=== PATIENT | female | born 1980 | race Caucasian/White ===

== ENCOUNTER 2020-01-07 10:45 | Outpatient (CLI) | payer OTHER ==
[2020-01-08 11:42] LABS: SARS-CoV-2 MS2 Positive; SARS-CoV-2 N Gene Negative; SARS-CoV-2 S Gene Negative; SARS-CoV-2 by NAA Not Detected (NotDetected); SARS-CoV-2 orf1ab Negative
== END 2020-01-07 10:46 | disposition home or self-care (01) ==
LOC: LABBT 10:45
PROVIDERS: ATTEND Orthopaedic Surgery
DX: Z01.812 Encounter for preprocedural laboratory examination (principal); Z11.59 Encounter for screening for other viral diseases; S82.851A Displaced trimalleolar fracture of right lower leg, initial encounter for closed fracture
CPT/HCPCS: 87635; U0003

== ENCOUNTER 2020-01-08 20:01 | Observation (INO) | payer SELFPAY ==
[2020-01-08] MEDS ORDERED: Morphine 4 MG/ML VIAL ONE (20:55)
[2020-01-08 21:08] LABS: #Eosinphils 0.1 thou/uL (0.0-0.7); #Lymphocytes 1.7 thou/uL (1.20-3.40); #Monocytes 0.5 thou/uL (0.11-0.59); #Neutrophils 4.2 thou/uL (1.40-6.50); %Basophils 0.3 % (0.0-1.0); %Eosinophils 1.5 % (0.0-10.0); %Lymphocytes 26.8 % (21.0-51.0); %Monocytes 7.5 % (0.0-10.0); Mean Corpuscular Hemoglobin 28.8 pg (27.0-31.0); Mean Corpuscular Volume 87.3 fL (78.0-98.0); Mean Platelet Volume 6.1 fL (7.4-10.4); Platelet Count 392 thou/uL (130-400); RBC Distribution Width 12.3 % (11.5-14.5); Red Blood Cell (RBC) Count 4.17 mill/uL (4.20-5.40); White Blood Cell (WBC) Count 6.5 thou/uL (4.8-10.8)
[2020-01-08 21:27] LABS: ALT (SGPT) 14 U/L (8-55); AST (SGOT) 19 U/L (5-34); Albumin 3.8 g/dL (3.5-5.0); Alkaline Phosphatase 50 U/L (40-110); Anion Gap 11 mmol/L (10-20); BUN (Urea Nitrogen) 11 mg/dL (7.0-18.7); Bilirubin, Total 0.3 mg/dL (0.2-1.2); Calc. Creatinine Clearance 0 mL/min (70-130); Calcium 8.9 mg/dL (7.8-10.44); Carbon Dioxide 27 mmol/L (22-29); Chloride 102 mmol/L (98-107); Estimated GFR-MDRD 60; Globulin 2.9 g/dL (2.4-3.5); Glucose 89 mg/dL (70-105); Potassium 3.9 mmol/L (3.5-5.1); Protein, Total 6.7 g/dL (6.0-8.3); Sodium 136 mmol/L (136-145)
--- NOTE | 2020-01-08 21:47 | RAD ---
Exam:Right ankle 3 views HISTORY: Known fracture. Pain. COMPARISON: None FINDINGS: Limited evaluation of fine bony detail due to external lasting material. Mildly displaced d istal fibular fracture with cortication. Posterior malleolus fracture and medial malleolus fracture identified. There is widening of the distal aspect of the syndesmosis. There is widening of the later al joint space.. IMPRESSION: Posttraumatic changes as described above. Comparison with prior imaging beneficial. Given widening of the medial joint space and widening of the distal syndesmosis, consider orthopedic consultation
--- NOTE | 2020-01-08 22:18 | ULT ---
Exam:Rightlower extremity venous ultrasound with Doppler HISTORY: Rightlower extremity swelling. Pain. Fracture. COMPARISON: None TECHNIQUE: Grayscale, color flow, Doppler imaging and spectral wave muscle performed right lower extr emity venous system FINDINGS: There is compressibility, presence of flow and augmentation in the common femoral vein, femoral vein and popliteal vein. There is flow in the greater saphenous vein and profunda femoral vein. Posterior tibial vein cannot be assessed due to bandage material. IMPRESSION: No thrombus in the visualized right lower extremity deep venous system.
[2020-01-09 00:07] VITALS: BMI 41.3
[2020-01-09] MEDS ORDERED: Acetaminophen 325 MG TAB PO PRN ×2 (00:07→11:10)
[2020-01-09] MEDS ORDERED: ALPRAZolam 0.25 MG TAB PO PRN (00:46)
[2020-01-09] MEDS ORDERED: hydrOXYzine 25 MG TAB PO SCH ×2 (01:00→09:00)
[2020-01-09] MEDS ORDERED: lamoTRIgine 100 MG TAB PO SCH ×3 (01:00→21:00)
[2020-01-09] MEDS ORDERED: Bupropion 150 MG XL TAB PO SCH ×2 (01:00→21:00)
[2020-01-09] MEDS: Sodium Chloride 0.9% 1,000 ML IV SCH ×2 (01:08→10:25)
[2020-01-09] MEDS ORDERED: Lithium Carbonate 150 MG CAP PO SCH (01:15)
[2020-01-09] MEDS: Morphine 4 MG/ML VIAL SLOW IVP PRN ×3 (01:27→10:25)
[2020-01-09] MEDS: HYDROcodone/Acetaminophen 5/325 mg Tablet PO PRN ×2 (04:15→12:17)
[2020-01-09] MEDS: Lithium Carbonate 150 MG CAP PO SCH ×2 (07:46→18:42)
[2020-01-09] MEDS ORDERED: CEFAZOLIN 2 GM in Premix Bag 1 BAG IVPB SCH (08:45)
[2020-01-09] MEDS ORDERED: Ascorbic Acid 500 mg Chewable Tablet PO SCH (09:00)
[2020-01-09] MEDS ORDERED: Ropivacaine 0.5% HCl/PF (150 MG/30 ML VIAL) ONE ×2 (09:40→13:37)
[2020-01-09] MEDS ORDERED: Bupivacaine HCl 0.5%/Epinephrine 1:200,000/PF 30 ml Vial ONE (09:40)
[2020-01-09] MEDS ORDERED: Dexamethasone 20 MG/5 ML VIAL ONE (09:40)
[2020-01-09] MEDS ORDERED: PROPOFOL 200 MG/20 ML VIAL ONE (09:40)
[2020-01-09] MEDS ORDERED: diphenhydrAMINE 50 MG/ML VIAL ONE (09:40)
[2020-01-09] MEDS ORDERED: Ondansetron PF 4 MG/2 ML Vial ONE (09:40)
[2020-01-09] MEDS ORDERED: Ropivacaine 0.2% HCl/PF (40 MG/20 ML VIAL) ONE (09:40)
[2020-01-09] MEDS ORDERED: Lidocaine 1% PF 5 ML VIAL ONE (09:40)
[2020-01-09] MEDS ORDERED: Morphine 4 MG/ML VIAL SLOW IVP PRN (11:10)
[2020-01-09] MEDS ORDERED: Sodium Chloride 0.9% 1,000 ML IV SCH (11:15)
[2020-01-09] MEDS: ALPRAZolam 0.25 MG TAB PO PRN ×2 (12:17→18:55)
[2020-01-09] MEDS ORDERED: Midazolam HCl 2 mg/2 ml Vial ONE (13:36)
[2020-01-09] MEDS ORDERED: Fentanyl 100 MCG/2 ML VIAL ONE ×3 (13:36→17:28)
[2020-01-09] MEDS ORDERED: Ropivacaine 0.2% HCl/PF 20 ML ONE (13:37)
[2020-01-09] MEDS ORDERED: Bupivacaine PF 0.5% 30 ML VIAL ONE (13:37)
[2020-01-09] MEDS ORDERED: Neomycin-Polymyxin 1 ML AMP ONE (14:44)
[2020-01-09] MEDS ORDERED: traMADol HCl 50 MG TAB PO PRN ×2 (15:14)
[2020-01-09] MEDS ORDERED: Ondansetron PF 4 MG/2 ML Vial IVP PRN (15:14)
[2020-01-09] MEDS ORDERED: Ropivacaine 0.2% 550 ML 550 ML NERVE BLCK SCH (15:14)
[2020-01-09] MEDS ORDERED: Zolpidem Tartrate 5 MG TAB PO PRN (15:14)
[2020-01-09] MEDS ORDERED: HYDROcodone/Acetaminophen 10/325 mg Tablet PO PRN ×2 (15:14)
[2020-01-09] MEDS ORDERED: Promethazine HCl 25 MG/ML VIAL IM PRN ×2 (15:14→16:21)
[2020-01-09] MEDS ORDERED: Fentanyl 100 MCG/2 ML VIAL IV PRN (15:15)
[2020-01-09] MEDS ORDERED: Promethazine HCl 25 MG/ML VIAL SLOW IVP PRN (16:21)
[2020-01-09] MEDS ORDERED: Meperidine HCl/PF 25 MG/ML VIAL SLOW IVP PRN (16:21)
[2020-01-09] MEDS ORDERED: HYDROmorphone 2 MG/ML VIAL SLOW IVP PRN (16:21)
[2020-01-09] MEDS ORDERED: Ketorolac Tromethamine 30 MG/ML VIAL IVP PRN (16:21)
--- NOTE | 2020-01-09 16:31 | RAD ---
Right ankle 3 views intraoperative fluoroscopy HISTORY: Fracture. FINDINGS: Intraoperative fluoroscopy was provided for internal fixation as performed by Dr. Goff. Spot fluoroscopic views show lateral compression plate transfixing the distal fibula. Long lag screws transfix the medial malleolus. Transverse screw fixes the distal tibiofibular joint. Alignment is anatomic. Fluoroscopy time 11.7 minutes.
[2020-01-09] MEDS ORDERED: Ketorolac Tromethamine 30 MG/ML VIAL ONE (18:00)
[2020-01-09 18:42] VITALS: BP 133/90; TEMP 97.3
--- NOTE | 2020-01-10 10:46 | OP ---
DATE OF PROCEDURE: 01/09/2020 PREOPERATIVE DIAGNOSIS: Right trimalleolar ankle fracture with disruption of syndesmosis. POSTOPERATIVE DIAGNOSIS: Right trimalleolar ankle fracture with disruption of syndesmosis. PROCEDURES PERFORMED: 1. Open reduction and internal fixation of right trimalleolar ankle. 2. Right syndesmotic disruption repair. ANESTHESIA: General. TEAM FACILITATOR: Dillon. TOURNIQUET TIME: 60 minutes at 300 mmHg. IMPLANTS: Synthes system was used with a 1/3 tubular 8-hole plate with the addition of a 4 mm cortical syndesmotic screw. COMPLICATIONS: None. DRAINS: None. SPECIMEN: None. OUTCOME: Satisfactory. INDICATIONS FOR PROCEDURE: The patient is a 39-year-old lady status post twisting injury sustaining a fracture dislocation of the right ankle. This was provisionally reduced in an outside emergency room and splinted. The patient now is scheduled to proceed for surgical stabilization for this grossly unstable ankle with disruption of the syndesmosis. Informed consent has been obtained. I believe all questions have been answered. DESCRIPTION OF PROCEDURE: The patient was brought to the operating room and a time-out performed followed by induction of general anesthesia. Next, a sterile prep and drape was performed to the right lower extremity. The limb was exsanguinated with Esmarch bandage and tourniquet inflated to 300 mmHg. Next, a longitudinal incision was made over the distal fibula. After skin was sharply incised, dissection was carried down bluntly exposing the lateral malleolus and distal fibula using minimal subperiosteal dissection, the fracture edges were identified. The fracture hematoma was lavaged from the wound and then the fracture reduced and held in place with a provisional K-wire. Next, an 8-hole 1/3 tubular plate was bent and applied to the lateral cortex of the fibular shaft and distal fibula. This was held in place with a total of three cortical screws proximal and distal to the fracture. There was a more medial butterfly fragment that was laying in apposition to the shaft and this was rather thin and as such, inner fragmentary capturing of this was not pursued. The fibula was brought out to length and then images of the ankle showed christianity of the mortise, but still with a grossly unstable distal tib-fib articulation. As such, attention was then placed on the medial ankle, a longitudinal incision was made over the medial malleolus. After the skin was sharply incised, dissection was carried down bluntly. Branches of the vein were electrocauterized to allow for mobilization of the vein. The fracture edges were freed of soft tissue and the fracture hematoma lavaged from the wound. The fracture was then reduced and held in place with bone tenaculum and then two partially-threaded cancellous screws were passed from the tip of the medial malleolus obliquely across the fracture into the distal tibial metaphysis. This resulted in anatomic alignment of the ankle mortise. Next, going back to the lateral incision, a drill was passed from both cortices of the fibula across both cortices of the distal tibia. This under C-arm guidance. A 4.0 mm cortical screw was then passed as a syndesmotic screw stabilizing the ankle mortise. At the completion of this, final AP, lateral and mortise C-arm images were obtained. The two incisions were thoroughly irrigated with bulb syringe and normal saline followed by closure with 0 Vicryl deep followed by 2-0 Vicryl and then the final skin closure. Xeroform gauze, Webril, and a fiberglass splint were applied to the ankle. Tourniquet was let down at the completion of dressing and the patient was transferred to recovery room in stable condition. There were no complications. She tolerated the procedure well. Job ID: [id number]
== END 2020-01-09 20:05 | disposition home or self-care (01) ==
LOC: ERS 20:01 → SURG A 23:30
PROVIDERS: ADMIT Orthopaedic Surgery; ATTEND Orthopaedic Surgery
PROC: 0QSJ04Z Reposition Right Fibula with Internal Fixation Device, Open Approach (ICD-10-PCS; principal; 2020-01-09)
PROC: 0QSG04Z Reposition Right Tibia with Internal Fixation Device, Open Approach (ICD-10-PCS; 2020-01-09)
PROC: 0QSG04Z Reposition Right Tibia with Internal Fixation Device, Open Approach (ICD-10-PCS; 2020-01-09)
DX: S82.851A Displaced trimalleolar fracture of right lower leg, initial encounter for closed fracture (principal); S93.431A Sprain of tibiofibular ligament of right ankle, initial encounter; F41.9 Anxiety disorder, unspecified; F31.9 Bipolar disorder, unspecified; F98.8 Other specified behavioral and emotional disorders with onset usually occurring in childhood and adolescence; Z79.899 Other long term (current) drug therapy; X58.XXXA Exposure to other specified factors, initial encounter; Y92.828 Other wilderness area as the place of occurrence of the external cause; Z88.5 Allergy status to narcotic agent
CPT/HCPCS: 29515; 36415; 76000; 80053; 85025; 85379; 96372; 96374; 96376; A4306; C1713; G0378; J0670; J0690; J1100; J1200; J1885; J2250; J2270; J2405; J2704; J2795; J3010; S0020

== ENCOUNTER 2020-04-02 08:55 | Outpatient (CLI) | payer OTHER ==
[2020-04-03 11:00] LABS: SARS-CoV-2 MS2 Positive; SARS-CoV-2 N Gene Negative; SARS-CoV-2 S Gene Negative; SARS-CoV-2 by NAA Not Detected (NotDetected); SARS-CoV-2 orf1ab Negative
== END 2020-04-02 08:56 | disposition home or self-care (01) ==
LOC: LABBT 08:55
PROVIDERS: ATTEND Orthopaedic Surgery
DX: T85.848D Pain due to other internal prosthetic devices, implants and grafts, subsequent encounter (principal); Z20.828 Contact with and (suspected) exposure to other viral communicable diseases
CPT/HCPCS: 87635; U0003

== ENCOUNTER 2020-04-07 10:25 | Day surgery (SDC) | payer OTHER, SELFPAY ==
[2020-04-06 13:21] VITALS: BMI 35.4
[2020-04-07] MEDS ORDERED: Ondansetron PF 4 MG/2 ML Vial ONE (12:19)
[2020-04-07] MEDS ORDERED: Lidocaine 1% PF 5 ML VIAL ONE (12:19)
[2020-04-07] MEDS ORDERED: PROPOFOL 200 MG/20 ML VIAL ONE (12:19)
[2020-04-07] MEDS ORDERED: Lidocaine 1% (PF) 30 ML VIAL ONE (13:02)
[2020-04-07] MEDS ORDERED: HYDROmorphone 0.5 MG/0.5 ML SYRINGE ONE (13:05)
[2020-04-07] MEDS ORDERED: Midazolam HCl 2 mg/2 ml Vial ONE (13:20)
[2020-04-07] MEDS ORDERED: Fentanyl 100 MCG/2 ML VIAL ONE (13:20)
[2020-04-07] MEDS ORDERED: HYDROcodone/Acetaminophen 5/325 mg Tablet ONE (14:25)
--- NOTE | 2020-04-07 17:07 | RAD ---
RIGHT ANKLE THREE VIEWS: 04/07/20 HISTORY: Hardware removal. These are C-arm films. They show single screw through the medial malleolus and a distal plate and scr ew stabilizing the distal fibular shaft fracture. The medial malleolus may actually have two screws w hich are overlapped. It is difficult to say as these are AP projections. The screw across the tibia a nd fibula has been removed. IMPRESSION: Intraoperative films showing hardware removal. POS: OFF
--- NOTE | 2020-04-07 19:25 | OP ---
DATE OF PROCEDURE: 04/07/2020 PROCEDURE PERFORMED: Right ankle hardware removal. PREOPERATIVE DIAGNOSIS: Right bimalleolar ankle fracture with syndesmosis screw fixation. POSTOPERATIVE DIAGNOSIS: Right bimalleolar ankle fracture with syndesmosis screw fixation. COMPLICATIONS: None. ESTIMATED BLOOD LOSS: Minimal. IMPLANTS: None. INDICATIONS: Ms. Cerna is a 39-year-old female, who has fallen and fractured her right ankle. She has displaced ankle fracture. She has been treated surgically and now is healed. She has been indicated for syndesmosis screw removal to prevent screw breakage and improve her motion. Risks have been reviewed. DESCRIPTION OF PROCEDURE: Ms. Cerna was identified in the preoperative holding area. Her correct extremity was marked. She was carried to the operating room. She was positioned supine. General anesthesia was induced. A multidisciplinary time-out was performed. The right lower extremity was prepped and draped in sterile fashion. We began the procedure with intraoperative evaluation of the ankle with x-ray. We identified the appropriate position for the syndesmosis screw. We made a small incision and dissected down to the screw head. At this point, we used a screwdriver to back out these screw. We then performed a stress view x-ray, which was negative. We then thoroughly irrigated and closed with a nylon suture. A sterile dressing was applied. The patient was taken to the recovery room in good condition. Job ID: [id number]
== END 2020-04-07 15:10 | disposition home or self-care (01) ==
LOC: SDC 10:25
PROVIDERS: ATTEND Orthopaedic Surgery
PROC: 0YP90YZ Removal of Other Device from Right Lower Extremity, Open Approach (ICD-10-PCS; principal; 2020-04-07)
DX: T84.84XA Pain due to internal orthopedic prosthetic devices, implants and grafts, initial encounter (principal)
CPT/HCPCS: 76000; J0690; J1170; J2001; J2250; J2405; J2704; J3010